=== PATIENT | male | born 1975 | race Hispanic/Latino ===

== ENCOUNTER 2022-10-06 05:52 | Emergency (ER) | payer OTHER ==
[~2022-10-06] VITALS: Ht 170.2 cm; Wt 83.5 kg
[2022-10-06] MEDS ORDERED: LIDOCAINE HCL 1% 20 ML VIAL ONE (06:08)
[2022-10-06] MEDS ORDERED: CEPH500B PO (06:22)
[2022-10-06] MEDS ORDERED: IBUP-2076 PO (06:22)
[2022-10-06 06:30] VITALS: BP 135/74; PULSE 88; RESP 18; O2SAT 99
[2022-10-06] MEDS ORDERED: TETANUS/DIPHTHERIA TOXOID [ADULT] 0.5 ML VIAL IM ONE (06:30)
[2022-10-06] MEDS ORDERED: DIPH,PERTUSS(ACELL),TET VAC/PF 0.5 ML VIAL IM ONE (06:30)
[2022-10-06] MEDS ORDERED: LIDOCAINE HCL 1% 20 ML VIAL INJ ONE (06:30)
== END 2022-10-06 06:44 | disposition home or self-care (01) ==
LOC: EDH 05:52
DX: S80.251A Superficial foreign body, right knee, initial encounter (principal); Z79.899 Other long term (current) drug therapy; X58.XXXA Exposure to other specified factors, initial encounter; Y93.89 Activity, other specified; Y92.89 Other specified places as the place of occurrence of the external cause; Y99.8 Other external cause status
CPT/HCPCS: 90471; 90714